=== PATIENT | female | born 1940 | race Caucasian/White ===

== ENCOUNTER 2023-09-17 14:04 | Emergency (ER) | payer MEDICARE, BC ==
[~2023-09-17] VITALS: Ht 154.9 cm; Wt 51.7 kg
[2023-09-17] MEDS ORDERED: ketorolac trometh. 30mg/ml inj. IM ONE (18:45)
[2023-09-17 19:38] VITALS: BP 154/77; PULSE 73; RESP 15; TEMP 98.2; O2SAT 97
== END 2023-09-17 19:41 | disposition home or self-care (01) ==
LOC: ER 14:04
DX: M71.21 Synovial cyst of popliteal space [Baker], right knee (principal); M19.90 Unspecified osteoarthritis, unspecified site
CPT/HCPCS: 73564; 96372; 99283; J1885